=== PATIENT | female | born 1970 | race Caucasian/White ===

== ENCOUNTER 2016-06-24 06:20 | Day surgery (SDC) | payer BC ==
[2016-06-21 17:46] LABS: BASOPHILS 0.4 %; BASOPHILS ABSOLUTE 0.05 10/3/uL (0.0-0.16); EOSINOPHILS 2.1 %; EOSINOPHILS ABSOLUTE 0.29 10/3/uL (0.0-0.53); HEMATOCRIT 43.3 % (36.0-48.0); HEMOGLOBIN 14.3 g/dL (12.0-16.0); IMMATURE GRANULOCYTES 0.4 %; IMMATURE GRANULOCYTES ABSOLUTE 0.05 10/3/uL (0.0-0.11); LYMPHOCYTES 23.5 %; LYMPHOCYTES ABSOLUTE 3.17 10/3/uL (0.67-4.30); MEAN CORPUSCULAR HEMOGLOB 31.3 pg (26.0-34.0); MEAN CORPUSCULAR VOLUME 94.7 fL (80-100); MEAN PLATELET VOLUME 10.3 fL (9.2-13.0); MONOCYTES 6.6 %; MONOCYTES ABSOLUTE 0.89 10/3/uL (0.21-1.20); NEUTROPHILS ABSOLUTE 9.04 10/3/uL (2.02-8.40); PLATELET COUNT 342 10/3/uL (150-400); RBC DISTRIBUTION WIDTH 13.1 % (12.0-16.0); RED CELL COUNT 4.57 10/6/uL (4.0-5.6); WHITE BLOOD CELLS 13.5 10/3/uL (4.5-10.5)
[2016-06-21 17:48] LABS: MANUAL DIFF NO %
[2016-06-21 17:53] LABS: BUN (BLOOD UREA NITROGEN) 10 MG/DL (6-23); CALCIUM, SERUM 9.1 MG/DL (8.5-10.4); CHLORIDE, SERUM 105 MMOL/L (96-112); CO2 (CARBON DIOXIDE) 27 MMOL/L (24-34); CREATININE 0.73 MG/DL (0.55-1.02); GFR AFRICAN AMERICAN 115 ML/MIN (>=60); GFR NON AFRICAN AMERICAN 99 ML/MIN (>=60); GLUCOSE, SERUM 91 MG/DL (60-99); POTASSIUM, SERUM 4.5 MMOL/L (3.5-5.3); SODIUM, SERUM 140 MMOL/L (135-148)
--- NOTE | ~2016-06-24 | OP ---
Record Of Operation [facility] [address] [place]. [address] NAME: EMILIANO GLASS : 70 STATUS : [facility]#: [id number] AGE: 45 ADM/REG DATE : 06/24/16 MR#: [id number] REPORT SERV DATE: 06/24/16 DICTATED BY: JEFE BLEVINS DATE: 06/24/16 REPORT STATUS : Draft TRANSCRIBED BY: MODL DATE: 06/24/16 DATE OF PROCEDURE: 06/24/2016 PREOPERATIVE DIAGNOSIS: Vulvar intraepithelial neoplasia 3. POSTOPERATIVE DIAGNOSIS: Vulvar intraepithelial neoplasia 3. PROCEDURE: Partial simple vulvectomy, CPT code 46392. SURGEON: Jfee Blevins M.D. ESTIMATED BLOOD LOSS: 10 mL. FLUIDS IN: 1 L of crystalloid. COMPLICATIONS: None. FINDINGS AND INDICATIONS: This is a 45-year-old female, who presents with a biopsy consistent with GERALD 3 with a lesion encompassing the posterior aspect of the vulva. The lesion was excised in total and the vulva was repaired with 2-0 Vicryl suture. There was no gross evidence of further dysplasia. The vulva was also exam with acetic acid. PROCEDURE IN DETAIL: The patient was taken to the operating room. She was placed in supine position for administration of general anesthesia. She was then placed in dorsal lithotomy position, prepped and draped in usual sterile fashion. The vulva was soaked with acetic acid with the above findings noted. The area of dysplasia was outlined. Using a scalpel, the posterior vulva was removed in an elliptical fashion. All areas of dysplasia were removed and sent to Pathology. The skin was then reapproximated using 2-0 Vicryl in a horizontal mattress like fashion. At the completion of the procedure, the vulva was inspected for excellent hemostasis. The anesthesia was reversed. The patient was taken to the recovery room in stable condition. SOHAM/CARLO Jefe Blevins M.D. / [id number] CC: Isabel Caceres Kevin
[~2016-06-24 06:20] MED LIST: AMIT10 PO; CYMBALTA60 PO; ESTRATEST PO; NEUR100 PO; NORCO1 TAB PO; OXYCOD PO; PRIN20 PO; V5 PO
== END 2016-06-24 14:17 | disposition home or self-care (01) ==
LOC: SDC 06:20
PROVIDERS: Obstetrics & Gynecology Gynecologic Oncology
PROC: 0UBM0ZZ Excision of Vulva, Open Approach (ICD-10-PCS; principal; 2016-06-24 07:45)
DX: D07.1 Carcinoma in situ of vulva (principal); I10 Essential (primary) hypertension; Z87.891 Personal history of nicotine dependence; Z90.710 Acquired absence of both cervix and uterus; Z88.0 Allergy status to penicillin; Z88.8 Allergy status to other drugs, medicaments and biological substances; Z79.891 Long term (current) use of opiate analgesic; Z79.899 Other long term (current) drug therapy; Z90.49 Acquired absence of other specified parts of digestive tract; Z98.1 Arthrodesis status; Z98.890 Other specified postprocedural states
CPT/HCPCS: 36415; 80048; 85025; 88305; 88307; A9270-GY; J0330; J0690; J1885; J2250; J2405; J2550; J3010